=== PATIENT | male | born 1990 | race Caucasian/White ===

== ENCOUNTER 2017-11-20 06:19 | Emergency (ER) | payer OTHER ==
[~2017-11-20] VITALS: Ht 175.3 cm; Wt 79.4 kg
[2017-11-20 06:36] LABS: ABSOLUTE EOSINOPHILS 0.5 thou/uL (0.0-0.7); ABSOLUTE LYMPHOCYTES 3.9 thou/uL (0.8-5.3); ABSOLUTE MONOCYTES 0.7 thou/uL (0.0-1.2); ABSOLUTE NEUTROPHILS 4.9 thou/uL (1.6-8.1); BASOPHILS 0.5 %; EOSINOPHILS 4.9 %; HEMOGLOBIN 16.2 gm/dL (14.0-18.0); LYMPHOCYTES 38.7 %; MCHC 36.8 g/dL (28.0-37.0); MCV 78.9 fL (80.0-100.0); MONOCYTES 7.2 %; MPV 6.7 fl. (7.2-11.1); NUCLEATED RBCS 0 /100WBC; PLATELET COUNT* 268 thou/uL (150-400); POLYS 48.7 %; RBC 5.58 mil/uL (4.50-6.00); RDW-CV 12.9 % (10.5-14.5); WBC 10.1 thou/uL (4.0-11.0)
[2017-11-20 06:49] LABS: ANION GAP 4 mmol/L (7-16); BUN 23 mg/dL (7-18); CALCIUM 9.1 mg/dL (8.5-10.1); CHLORIDE 101 mmol/L (98-107); CO2 31 mmol/L (21-32); GLUCOSE 102 mg/dL (70-99); POTASSIUM 3.5 mmol/L (3.5-5.1); SODIUM 136 mmol/L (136-145)
[2017-11-20 06:53] LABS: APTT 28.2 Seconds (25.0-31.3); INR 1.1; PROTIME 10.7 Seconds (9.20-11.50)
[2017-11-20 07:07] LABS: ALBUMIN 4.3 g/dL (3.4-5.0); ALKALINE PHOSPHATASE 47 U/L (46-116); LIPASE 117 U/L (73-393); MAGNESIUM 2.1 mg/dL (1.8-2.4); NT-PRO BRAIN NAT PEPTIDE 94 pg/mL (<300); SGOT 28 U/L (15-37); SGPT 38 U/L (30-65); TOTAL BILIRUBIN 0.5 mg/dL (<0.1-1.0); TOTAL PROTEIN 7.6 g/dL (6.4-8.2); TROPONIN-I LEVEL <0.06 ng/mL (<0.06)
[2017-11-20 10:04] LABS: CK-MB MASS 2.7 ng/mL (<0.5-3.6); TROPONIN-I LEVEL <0.06 ng/mL (<0.06)
[2017-11-20 10:35] VITALS: BP 115/64
--- NOTE | 2017-11-20 10:35 | EKG ---
[place] [address] ELECTROCARDIOGRAM REPORT Name: PAIZMONIQUE Huggins Jeri Room: [facility]#: [id number] Admission: 11/20/17 Attend Phys: Discharge: Date of : 89 Report #: [id number] THIS REPORT FOR: //name// [facility] [place] ED Test Date: 2017-11-20 Test Time: 06:22:50 Pat Name: MONIQUE PAIZ Department: Room: Gender: M [employer]: : 1990 Requested By: Timo Shoemaker Order Number: [id number] MD: Manjinder Taylor Measurements Intervals [place] Rate: 85 P: 71 WV: 166 QRS: 65 QRSD: 105 T: 40 QT: 385 QTc: 458 Interpretive Statements Sinus rhythm Consider right atrial enlargement left ventricular hypertrophy probably normal for age No previous ECG available for comparison Electronically Signed On 11-20-2017 10:34:51 [employer]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
== END 2017-11-20 10:35 | disposition home or self-care (01) ==
LOC: M.ERS 06:19
PROVIDERS: Family Medicine; Personal Emergency Response Attendant
DX: R07.89 Other chest pain (principal)